=== PATIENT | male | born 1995 | race Caucasian/White ===

== ENCOUNTER 2019-06-17 19:29 | Emergency (ER) | payer OTHER ==
[2019-06-17] MEDS ORDERED: NORMAL SALINE 1000 ML 1,000 ML IV ONE (20:11)
[2019-06-17] MEDS ORDERED: PROCHLORPERAZINE EDISYLATE INJ 10 MG/2 ML VIAL IV ONE (20:11)
[2019-06-17] MEDS ORDERED: DIPHENHYDRAMINE HCL 50 MG/ML VIAL IV ONE (20:12)
[2019-06-17] MEDS ORDERED: ONDANSETRON HCL INJ/PF 4 MG/2 ML SDV IV ONE (20:13)
--- NOTE | 2019-06-17 20:16 | ER Document Report ---
ED Medical Screen (RME) - General Chief Complaint: Headache Stated Complaint: HEADACHE Time Seen by Provider: 06/17/19 20:02 Mode of Arrival: Ambulatory Information source: Patient, Relative Notes: This 24-year-old male presents emergency department with reports of severe migraine. Reports he has had migraines for over a year. Reports increasingly frequency and strength. Reports this headache feels different from all the other migraines his head. Reports his usual migraines feel like the meat on his face is hanging off. This HUBER starts in the back of his head hurts reports sensitivity to light noise sounds. Denies vomiting diarrhea. Denies recent trauma. Denies history of PTSD TBI. Reports he has been evaluated at [facility] couple times and treated with Maxalt. He is taking Maxalt without relief of symptoms. Patient reports this is the worst headache he has had rates to 5 out of 5. Patient reports history of nose injury and was worried that maybe he has a deviated septum that is causing his headaches. Patient is alert and oriented no obvious neuro deficits noted. No weakness voice clear. I have greeted and performed a rapid initial assessment of this patient. A comprehensive ED assessment and evaluation of the patient, analysis of test results and completion of the medical decision making process will be conducted by additional ED providers. Dictation of this chart was performed using voice recognition software; therefore, there may be some unintended grammatical errors. TRAVEL OUTSIDE OF THE [place] IN LAST 30 DAYS: No Physical Exam - Vital signs Vitals: Temp Pulse Resp BP Pulse Ox 98.7 F 71 16 149/90 H 98 06/17/19 19:38 06/17/19 19:38 06/17/19 19:38 06/17/19 19:38 06/17/19 19:38 Course - Vital Signs Vital signs: Temp Pulse Resp BP Pulse Ox 98.7 F 71 16 149/90 H 98 06/17/19 19:38 06/17/19 19:38 06/17/19 19:38 06/17/19 19:38 06/17/19 19:38
--- NOTE | 2019-06-17 21:12 | RADIOLOGY REPORT (SQ) ---
EXAM DESCRIPTION: CT HEAD WITHOUT INTRAVENOUS CONTRAST CLINICAL HISTORY: Severe headache COMPARISON: None TECHNIQUE: CT of the head was performed without intravenous contrast .This exam was performed according to our departmental dose-optimization program, which includes automated exposure control, adjustment of the mA and/or KV according to the patient's size and/or use of iterative reconstruction technique. FINDINGS: There is no intracranial hemorrhage, midline shift, mass effect or acute focal infarct. . There is good gasca/white matter differentiation. The ventricular system is normal. Visualized mastoid air cells within normal limits. The paranasal sinuses within normal limits. There is no visualization of calvarial or skull base fractures. IMPRESSION: There are no acute intracranial findings.
--- NOTE | 2019-06-17 21:30 | ER Document Report ---
ED General - General Chief Complaint: Headache Stated Complaint: HEADACHE Time Seen by Provider: 06/17/19 20:02 Mode of Arrival: Ambulatory TRAVEL OUTSIDE OF THE [place] IN LAST 30 DAYS: No - HPI Patient complains to provider of: Headache Notes: Patient with lengthy history of migraines presents with a very bad migraine headache. Patient felt a migraine starting earlier this morning with some nagging discomfort in the morning the back of his head. Got worse throughout the day gradually was a little irritating at lunchtime. But at bedtime he could not sleep secondary intense pain throbbing in the back of his head. Patient states he normally gets frontal migraines this is different and worse than normal. Patient endorses photophobia and autophobia which is normal for him. Patient took a Maxalt which she was prescribed without any change in his symptoms. Patient has never had any imaging studies performed of his head. - Related Data Allergies/Adverse Reactions: No Known Allergies Allergy (Unverified 06/17/19 21:37) Past Medical History - General Information source: Patient, Relative - Social History Smoking Status: Unknown if Ever Smoked Family History: None Review of Systems - Review of Systems Notes: REVIEW OF SYSTEMS: CONSTITUTIONAL: -fevers, -chills EENT: -eye pain, -difficulty swallowing, -nasal congestion CARDIOVASCULAR: -chest pain, -syncope. RESPIRATORY: -cough, -SOB GASTROINTESTINAL: -abdominal pain, -nausea, -vomiting, -diarrhea GENITOURINARY: -dysuria, -hematuria MUSCULOSKELETAL: -back pain, -neck pain SKIN: -rash or skin lesions. HEMATOLOGIC: -easy bruising or bleeding. LYMPHATIC: -swollen, enlarged glands. NEUROLOGICAL: -altered mental status or loss of consciousness, positive headache, -neurologic symptoms PSYCHIATRIC: -anxiety, -depression. ALL OTHER SYSTEMS REVIEWED AND NEGATIVE. Physical Exam - Vital signs Vitals: Temp Pulse Resp BP Pulse Ox 98.7 F 71 16 149/90 H 98 06/17/19 19:38 06/17/19 19:38 06/17/19 19:38 06/17/19 19:38 06/17/19 19:38 - Notes Notes: PHYSICAL EXAMINATION: GENERAL: Well-appearing, well-nourished and in no acute distress. HEAD: Atraumatic, normocephalic. EYES: extraocular movements intact, sclera anicteric, conjunctiva are normal. ENT: nares patent, NECK: Normal range of motion, supple without lymphadenopathy LUNGS: Breath sounds clear EXTREMITIES: Normal range of motion, no pitting or edema. No cyanosis. NEUROLOGICAL: Cranial nerves grossly intact. Normal speech, normal gait. Normal sensory and motor exams. PSYCH: Normal mood, normal affect. SKIN: Warm, Dry, normal turgor, no rashes or lesions noted. Course - Re-evaluation Re-evalutation: 06/17/19 21:59 Well-appearing young man presents now in no acute distress. Gradual onset to his headache throughout the day. No thunderclap alert significant for him. Patient is afebrile with no focal neurologic deficit no neck pain. Patient given headache cocktail feeling markedly improved. Pain-free no photophobia. Neurologically intact. Patient has CAT scan performed which shows no acute intracranial process. Patient be discharged home follow-up with family doctor [place] Given strict return precautions anything should change or worsen please return - Vital Signs Vital signs: Temp Pulse Resp BP Pulse Ox 98.7 F 71 16 149/90 H 98 06/17/19 19:38 06/17/19 19:38 06/17/19 19:38 06/17/19 19:38 06/17/19 19:38 Discharge - Discharge Clinical Impression: Migraine Qualifiers: Migraine type: unspecified Status migrainosus presence: without status mi grainosus Intractability: not intractable Qualified Code(s): G43.909 - Migraine, unspecified, not intractable, without status migrainosus Condition: Stable Disposition: HOME, SELF-CARE Instructions: Headache ([facility]) Additional Instructions: You may need follow-up at neurology.
[2019-06-17] MEDS ORDERED: ACETAMINOPHEN 325 MG TABLET PO ONE (21:31)
[2019-06-17] MEDS ORDERED: KETOROLAC TROMETHAMINE INJ/PF 30 MG/1 ML SDV IV ONE (21:31)
[2019-06-17 22:34] VITALS: BP 119/76
== END 2019-06-17 22:07 | disposition home or self-care (01) ==
LOC: ER 19:29
DX: G43.909 Migraine, unspecified, not intractable, without status migrainosus (principal)
CPT/HCPCS: 99283; 96361; 96374; 96375; 70450; J1200; J1885; J0780; J2405; J7030